=== PATIENT | male | born 1955 | race Caucasian/White ===

== ENCOUNTER 2025-07-08 08:45 | Outpatient (RCR) | payer MEDICARE, SELFPAY ==
--- NOTE | 2025-04-22 16:33 | PTOPEVAL1 ---
Assessment and note entered by Shama Rdz, PT Evaluation Information Assessment Status Evaluation ICD-10 Condition Codes (PT) Pain in low back M54.50,Radiculopathy, lumbar region M54.16,Abnormalities of gait and mobility R26.9,Weakness R53.1 Onset 04/05/2025 Subjective Information Pt reports was doing more yard work prior to increased pain but had no pop, fall, or injury at that time. States initially was stiff, then increased pain, then would have pain into LLE, and now is mostly numb in LLE. States can no longer lift left toe and is effecting his walking. Was provided steroid pack PO and steroid injection , tramadol and another medication for pain. Reports is unsure this has helped X-ray imaging shows loss of disc height especially L5-S1 . No acute processes, fractures, or dislocations Reported Pain Level Pain Score 4: Self Report Assessment PT Clinical Summary Pt presents with new onset low back pain and radiculopathy of the LLE. Evaluation shows loss of strength in the gluteal muscles and significant loss of anterior tibialis muscle strength highly suggesting of left L5 nerve impingement. X-ray shows loss of disc height though does not differentiate between L and R, though one image shows increases left iliac crest height which can cause further impingement on the left side structures. We initiated lumbar traction today to decompress the nerve root, and will be educating on exercises for self decompression as well through therapy. However, with the sudden onset without overt injury, and the severity at which has progressed, cash reconciliation specialist referral may be warranted should therapy fail. Plan of Care Interventions Gait Training,Hot Pack/Cold Pack,Manual Therapy, Mechanical Traction,Neuro Re-education,Therapeutic Activities,Therapeutic Exercise,Self-Care/Home Management,Ultrasound,Other Other Interventions Bracing, taping PT Services Indicated Yes Treatment Frequency and 2x weekly x 10 visits Duration These treatments will address the objective and functional deficits as defined above. The patient will be advanced safely and appropriately in order for the patient to progress towards his/her prior level of function. Additional exercises will be introduced and as well as a comprehensive home exercise program upon discharge, if needed, ?to ensure carryover of functional gains achieved in the clinic. This treatment plan has been reviewed and agreement upon by the patient.
--- NOTE | 2025-04-22 16:33 | OPREHPOC ---
Outpatient Therapy Plan of Care This is a Multidisciplinary Plan of Care that may contain components documented by all disciplines (PT, OT, and ST.) PT Problem 1 PT Problem #1 Knowledge Deficit PT Goal 1 Goal / Goal Update Pt will be independent in HEP Pt will verbalize understanding of diagnosis and prognosis Target Visit 10 PT Problem 2 PT Problem #2 Pain PT Goal 1 Goal / Goal Update Pt will report lowest pain rating at 0/10 to show improvement in overall discomfort Target Visit 10 PT Goal 2 Goal / Goal Update Pt will report greatest pain level at 3/10 or less to improve ADLs and activities Target Visit 20 PT Problem 3 PT Problem #3 Impaired Strength PT Goal 1 Goal / Goal Update Pt will demonstrate anterior tibialis strength of 3/5 to allow improved gait cycles Target Visit 10 PT Goal 2 Goal / Goal Update Pt will demonstrate equal strength LLE to RLE in all tested planes Target Visit 20 PT Problem 4 PT Problem #4 Impaired Gait PT Goal 1 Goal / Goal Update Pt will demonstrate resolution of left drop foot in gait. Target Visit 20
--- NOTE | 2025-05-28 14:50 | PTOPPROG ---
Assessment and note entered by Shama Rdz, PT Evaluation Information Assessment Status Progress ICD-10 Condition Codes (PT) Pain in low back M54.50,Radiculopathy, lumbar region M54.16,Abnormalities of gait and mobility R26.9,Weakness R53.1 Onset 04/05/2025 Subjective Information Pt reports pain has returned to the calf and hip, intensity is about the same. Pt had follow-up with PCP yesterday, is checking on medication interactions. Is able to get an MRI 06/06/25 Feels like toes are moving, foot is a little straighter with walking Perceived improvement: pretty much the same but is better than day 1 and 2. States at that time was thinking about going to the ER but hasn't had any of these instances since . Pt states is using the heating pad on t he back that he tried icing the back 3x daily for 5 days straight and this didn't help so he uses heat Reports is getting exercises done about 75% of the time Assessment PT Clinical Summary Pt has attended therapy consistently 9 sessions. Reports does not feel his pain has improved. He did have one day that appeared to have centralized symptoms to the hip with resolution of calf pain, and also shows improved dorsiflexion actively isolated and with gait pattern. Hip strength and anterior tib strength continue to be severely limited. Pt is also awaiting MRI in a little over a week and will reconvene with neurology at that time. Today traction load was increased, continuing ultrasound for anti-inflammatory of left nerve root. Today educated in likelihood of LLE length > RLE, and how this can cause impingement of left nerve root. Pt will benefit from continued therapy as lowest pain rating reduced to 0/10 at one time, highest pain rating reduced from 9/10 to 7/10, and dorsiflexion appears to be improving. Plan of Care Interventions Electrical Stimulation,Gait Training,Hot Pack/Cold Pack,Manual Therapy,Mechanical Traction,Neuro Re- education,Patient/Caregiver Education,Therapeutic Activities,Therapeutic Exercise,Self-Care/Home Management,Ultrasound Other Interventions Bracing, taping PT Services Indicated Yes Treatment Frequency and 2x weekly x 10 visits Duration These treatments will address the objective and functional deficits as defined above. The patient will be advanced safely and appropriately in order for the patient to progress towards his/her prior level of function. Additional exercises will be introduced and as well as a comprehensive home exercise program upon discharge, if needed, ?to ensure carryover of functional gains achieved in the clinic. This treatment plan has been reviewed and agreement upon by the patient.
--- NOTE | 2025-07-08 09:29 | PTOPDC ---
Assessment and note entered by Shama Rdz, PT Evaluation Information Assessment Status Discharge ICD-10 Condition Codes (PT) Pain in low back M54.50,Radiculopathy, lumbar region M54.16,Abnormalities of gait and mobility R26.9,Weakness R53.1 Onset 04/05/2025 Subjective Information Pt reports tried calling Neuro to make appt and was unable to schedule f/u. States pain continues to be relieved, but continues to be unable to lift foot as normal and is effecting his walking. Self-perceived improvement: 90% Pain is way better, but reports almost fell from not being able to lift toe while walking. Hasn't tried lifting or walking long distances and is afraid of tripping on uneven surface Is currently wearing all 3 layers shoe lift in right show, doesn't feel there is any different but is not causing pain Reported Pain Level Pain Score 0: Self Report Assessment PT Clinical Summary Pt has attended 17 therapy sessions for low back and radiculopathy LLE. Pt reports feeling 90% improved as he no longer has pain in his leg or calf, however continues to have numbness in LLE, and inability to move his toes. He shows improvement in dorsiflexion of ankle though strength is still less than functional. Ankle function in addition to glute weakness is effecting his gait, and he continues to feel unsteady on uneven surfaces. He has had an MRI, and has followed up with neurosurgery who also referred him to pain management for steroid shots. He has yet to receive these shots however. Pt appears to have met max benefit from physical therapy at this time and is thus being discharged from POC. It was discussed return to therapy if Neuro or pain management had specific plans for therapy to address, we could start a new plan of care. Plan of Care PT Services Indicated Yes
== END 2025-07-08 09:40 | disposition home or self-care (01) ==
LOC: ANHHIPT 08:45
PROVIDERS: PCP Physician Assistant Medical; Visit Provider Nurse Practitioner Adult Health
DX: M54.16 Radiculopathy, lumbar region (principal)
CPT/HCPCS: 97012; 97014; 97035; 97110; 97140; 97161; 97530; 97750; G0283